=== PATIENT | male | born 1940 | race Caucasian/White ===

== ENCOUNTER 2024-01-16 14:06 | Outpatient (RCR) | payer OTHER, SELFPAY | END 2024-01-16 23:59 | disposition home or self-care (01) | LOC: RPT 14:06 | PROVIDERS: ATTENDING PHYSICIAN Family Medicine | DX: M62.81 Muscle weakness (generalized) (principal); R26.89 Other abnormalities of gait and mobility; Z73.6 Limitation of activities due to disability | CPT/HCPCS: 97110; 97116; 97162; 97530; 97535 ==

== ENCOUNTER 2024-02-13 14:07 | Outpatient (RCR) | payer OTHER, SELFPAY | END 2024-02-13 23:59 | disposition home or self-care (01) | LOC: RPT 14:07 | PROVIDERS: ATTENDING PHYSICIAN Family Medicine | DX: R26.81 Unsteadiness on feet (principal); M62.81 Muscle weakness (generalized); R26.89 Other abnormalities of gait and mobility; Z73.6 Limitation of activities due to disability; R26.2 Difficulty in walking, not elsewhere classified; Z96.653 Presence of artificial knee joint, bilateral | CPT/HCPCS: 97110; 97116; 97530 ==

== ENCOUNTER → 2024-03-13 14:04 | Outpatient (REF) | payer OTHER, SELFPAY | LOC: WOUND 14:04 | PROVIDERS: ATTENDING PHYSICIAN Surgery; FAMILY PHYSICIAN Family Medicine | DX: L89.312 Pressure ulcer of right buttock, stage 2 (principal); I48.21 Permanent atrial fibrillation; I87.2 Venous insufficiency (chronic) (peripheral); R60.9 Edema, unspecified | CPT/HCPCS: 99203 ==

== ENCOUNTER → 2024-03-31 10:51 | Outpatient (REF) | payer OTHER, SELFPAY | LOC: WOUND 10:51 | PROVIDERS: ATTENDING PHYSICIAN Surgery; FAMILY PHYSICIAN Family Medicine | DX: L89.312 Pressure ulcer of right buttock, stage 2 (principal); I48.21 Permanent atrial fibrillation; I87.2 Venous insufficiency (chronic) (peripheral); R60.9 Edema, unspecified; Z79.01 Long term (current) use of anticoagulants | CPT/HCPCS: 99213 ==

== ENCOUNTER 2024-03-31 15:08 | Outpatient (RCR) | payer OTHER, SELFPAY | END 2024-03-31 23:59 | disposition home or self-care (01) | LOC: RPT 15:08 | PROVIDERS: ATTENDING PHYSICIAN Family Medicine | DX: M62.81 Muscle weakness (generalized) (principal); R26.81 Unsteadiness on feet | CPT/HCPCS: 97110; 97112; 97530; 97535 ==

== ENCOUNTER 2024-04-22 19:12 | Outpatient (RCR) | payer OTHER, SELFPAY | END 2024-04-22 23:59 | disposition home or self-care (01) | LOC: RPT 19:12 | PROVIDERS: ATTENDING PHYSICIAN Family Medicine | DX: R26.81 Unsteadiness on feet (principal); M62.81 Muscle weakness (generalized); R26.89 Other abnormalities of gait and mobility; Z73.6 Limitation of activities due to disability | CPT/HCPCS: 97110; 97530 ==

== ENCOUNTER → 2024-04-23 13:31 | Outpatient (REF) | payer OTHER, SELFPAY | LOC: WOUND 13:31 | PROVIDERS: ATTENDING PHYSICIAN Surgery; FAMILY PHYSICIAN Family Medicine | DX: L89.312 Pressure ulcer of right buttock, stage 2 (principal); I48.21 Permanent atrial fibrillation; I87.2 Venous insufficiency (chronic) (peripheral); R60.9 Edema, unspecified | CPT/HCPCS: 99212 ==

== ENCOUNTER 2024-06-04 15:21 | Outpatient (RCR) | payer OTHER, SELFPAY | END 2024-06-04 23:59 | disposition home or self-care (01) | LOC: RPT 15:21 | PROVIDERS: ATTENDING PHYSICIAN Family Medicine | DX: R26.81 Unsteadiness on feet (principal); M62.81 Muscle weakness (generalized); R26.89 Other abnormalities of gait and mobility; Z73.6 Limitation of activities due to disability; Z96.653 Presence of artificial knee joint, bilateral | CPT/HCPCS: 97110; 97530 ==